=== PATIENT | female | born 1950 | race Caucasian/White ===

== ENCOUNTER 2017-07-06 15:09 | Inpatient (IN) ==
[2017-07-06] MEDS ORDERED: MORPHINE 2 MG/1 ML SYRINGE IM STA (16:01)
[2017-07-06] MEDS ORDERED: ACETAMINOPHEN 500 MG TABLET PO STA (16:01)
--- NOTE | 2017-07-06 16:02 | XRay Report ---
Exam: XR ankle 3V LT Exam date: 07/06/2017 3:32 PM Indication: Fall with Pain, Comparison: No relevant comparisons Findings: Mortise alignment is anatomic. Mildly displaced trimalleolar fracture. Small hemarthrosis. Soft tissue prominence at the fracture site Impression: Minimally displaced trimalleolar fracture PROCEDURE INTERPRETED AT [facility] DEPARTMENT OF RADIOLOGY Final Report Signed by: Jony Brown MD
--- NOTE | 2017-07-06 16:02 | XRay Report ---
Exam: XR foot 2V LT Exam date: 07/06/2017 3:33 PM Indication: Fall with Pain, Comparison: No relevant comparisons Findings: Trimalleolar ankle fracture is again noted. Joint spaces fairly well maintained. No fracture or dislocation. No joint effusion. No radiographic soft tissue abnormalities. Impression: No evidence of traumatic injury to left foot. Trimalleolar ankle fracture PROCEDURE INTERPRETED AT [facility] DEPARTMENT OF RADIOLOGY Final Report Signed by: Jony Brown MD
[2017-07-06] MEDS ORDERED: MORPHINE 2 MG/1 ML SYRINGE IV STA (16:07)
[2017-07-06] MEDS ORDERED: ACETAMINOPHEN 500 MG TABLET ONE (16:10)
[2017-07-06] MEDS ORDERED: MAGNESIUM HYDROXIDE SUSP 30 ML UDCUP PO PRN (16:37)
--- NOTE | 2017-07-06 16:42 | Emergency Department Note ---
Rita Thayer Brittany, am scribing for, and in the presence of, Almas Solis MD 16: 20. Will Thayer Robert, MD, personally performed the services described in this documentation, ascribed by Saba Salinas in my presence, and it is both accurate and complete . Arrival - Arrival Chief Complaint: Extremity Injury Stated Complaint: left ankle injury ED Nursing Triage Note: STATES SLIPPED IN A HOLE-TWISTING LEFT ANKLE-C/O LEFT FOOT-ANKLE PAIN-DEFORMITY -MILD EDEMA NOTED-GOOD PULSES PALPATED Mode of Arrival: Stretcher Limitations: No Limitations Source: Patient, Family Time Seen by Provider: 07/06/17 15:58 - History of Present Illness HPI Narrative: This may be limited secondary to pt's dementia. This is a 66 y/o white female, who presents to the ED by EMS with c/o LLE pain which started minutes [employer] S/P fall. Her states their dog has been digging holes in the yard. Her notes the hole has grown up some, but while pt was outside she stepped in the hole. She notes the right foot was the foot that was in the whole, but she is complaining of left foot pain. Per pt during exam of the LLE, "I can't feel my leg", but as soon as touches the LLE, "Oh, that hurts." Pt has dementia, so this may be limited. SHe notes she has a pain stimulator in her back for pain. She notes numbness which started yesterday but states the numbness has now gotten worse. Pt has no other complaints/pain in the ED at this time. Pt has a PMHx of Dementia, HTN, anxiety, depression, migraines, dyslipidemia, GERD, polyps, diverticulitis, lumbar spondylosis, Bhavik Fundoplication, and bulging disc. Pt has had an eye surgery, abdominal surgery, cholecystectomy, implanted devices, colonoscopy, gynecological surgery, tubal ligation, and spinal cord stimulator. Pt has a family medical Hx of colon cancer and HTN. Pt denies a social Hx. Onset (ago): minute(s) (Minutes [employer]OR) Consistency: constant Severity: moderate Allergies/Adverse Reactions: Allergies Allergy/AdvReac Type Severity Reaction Status Date / Time promethazine [From Phenergan] Allergy Intermediate Chills Verified 07/26/16 13: 28 Home Medications: Home Medications Medication Instructions Recorded Confirmed Type Donepezil [Aricept] 5 mg PO DAILY 01/12/15 04/03/17 History Fluoxetine [PROzac] 10 mg PO DAILY 01/12/15 04/03/17 History amLODIPine [Norvasc] 5 mg PO DAILY 01/12/15 04/03/17 History Aspirin Tab 325 mg PO DAILY 07/26/16 04/03/17 History Desvenlafaxine [Pristiq] 50 mg PO DAILY 03/26/17 04/03/17 History Gabapentin Cap/Tab [Neurontin 300 mg PO BID 03/26/17 04/03/17 History Cap/Tab] clonazePAM [Klonopin] 1 mg PO BEDTIME 03/26/17 04/03/17 History hydrOXYzine HCL TAB [Atarax Tab] 25 mg PO BEDTIME 03/26/17 04/03/17 History traZODone [Desyrel] 100 mg PO BEDTIME 03/26/17 04/03/17 History Cyanocobalamin Inj [Vitamin B12 1,000 mcg IM Q30D 04/03/17 04/03/17 History Inj] Pantoprazole Tab [Protonix Tab] 40 mg PO BID #60 tablet 04/03/17 Rx Review of System - Review of System 12 point system: reviewed and no additional remarkable complaints except as stated - Review of System Musculoskeletal: Present: joint swelling (Left ankle), leg pain (LLE pain ) Neurological: Present: weakness (Secondary to pain), numbness (Over her left foot and retirement option), abnormal gait (Unable to bear weight) Medical,Surgical,& Family Hx - Medical History Cardio: History of: Hypertension Psychological: History of: Anxiety Disorders, Depression Neurology: History of: Dementia, Migraine No history of: Seizures Endocrine: History of: Dyslipidemia Rheumatology: History of;: Rheumatological Problems (Arthritis) Gastrointestinal: History of: Diverticulitis/ Diverticulosis, GERD, Polyps, GI Problems (Hx: Bhavik Fundoplication) Musculoskeletal: History of: Back/Neck Problems (STIMULATOR IN NECK, lumbar spondylosis), Musculoskeletal Problems (Bulging disc) Other: No history of: Anesthesia Reactions - Surgical History Cardiac Surgeries: Patient Denies: Cardiac Catheterization HEENT Surgeries: Surgical HX of: Eye Surgery (cataracts heide) Patient denies: Tonsilectomy & Adenoidectomy Abdominal Surgeries: Surgical HX of: Abdominal Surgery, Cholecystectomy, Colonoscopy Reproductive Surgeries: Surgical HX of;: Gynecologic Surgery, Tubal Ligation Patient denies;: Genitourinary Surgery Orthopedic Surgeries: Surgical HX of;: Implanted Devices, Spinal Surgery ( Spinal cord stimulator) - Family History Family History: Reports;: Family Cancer (mother-colon), Family Hypertension ( Sister) Denies;: Family Anesthesia Reaction, Family Diabetes, Family Heart Disease, Family Psychiatric Problems, Family Stroke - Social History Smoking Status: Never smoker Exam Physical Examination: GENERAL: Well developed, well nourished. No acute distress. HEENT: PERRL, EOMI. No scleral icterus or conjunctival injection. mucous membranes moist. NECK: Supple. No lymph adenopathy. full ROM HEART: Regular rate and rhythm without murmurs, Rubs, or gallops. CHEST: No tenderness. LUNGS: clear to auscultation. No rales, rhonchi, wheezes ABDOMEN: Soft. Nontender. SKIN: No rash. No diaphoresis. normal color NEURO: Alert. Motor exam showed she was able to wiggle her toes. Unable to dorsiflex or plantarflex due to pain. Reports numbness to left toes, foot, ankle, lower leg. EXT: edema noted over Left ankle. Decreased range of motion of left ankle due to pain. Strong pedal pulse. Normal capillary refill, Vital Signs: Vital Signs Temperature 97.8 F 07/06/17 15:17 Pulse Rate 60 07/06/17 15:17 Respiratory Rate 20 07/06/17 15:17 Blood Pressure 130/68 07/06/17 15:17 O2 Sat by Pulse Oximetry 98 07/06/17 15:17 Course Course Narrative: Medical decision makin-year-old female stepped in hole and fell and twisted left ankle. X-rays show a trimalleolar fracture with mild displacement and with small amount of hemarthrosis. Patient has numbness in left foot. Discussed case with Dr. Robert at 4:31 PM who feels that she will likely need surgery and will admit her and see her later tonight. Disposition Clinical Impression: Trimalleolar fracture of left ankle Case discussed with: patient, patient's family Disposition: Still a Patient Condition: Stable Time of Disposition: 16:42
[2017-07-06 16:55] LABS: Potassium 4.5 MMOL/L (3.5-5.1)
[2017-07-06] MEDS ORDERED: SODIUM CHLORIDE 0.9% 1,000 ML IV SCH (17:00)
--- NOTE | 2017-07-06 17:11 | Orthopedic History & Physical ---
Assessment and Plan (1) Trimalleolar fracture of left ankle Status: Acute Current Visit: Yes History of Present Illness Chief complaint: Fracture left ankle History of present illness: Ms. Moy is a 66 year old female who stepped in a dog hole and fell sustaining trimalleolar fx left ankle. Brought to ER Home Medications Medication Instructions Recorded Confirmed Type Donepezil [Aricept] 5 mg PO DAILY 01/12/15 04/03/17 History Fluoxetine [PROzac] 10 mg PO DAILY 01/12/15 04/03/17 History amLODIPine [Norvasc] 5 mg PO DAILY 01/12/15 04/03/17 History Aspirin Tab 325 mg PO DAILY 07/26/16 04/03/17 History Desvenlafaxine [Pristiq] 50 mg PO DAILY 03/26/17 04/03/17 History Gabapentin Cap/Tab [Neurontin 300 mg PO BID 03/26/17 04/03/17 History Cap/Tab] clonazePAM [Klonopin] 1 mg PO BEDTIME 03/26/17 04/03/17 History hydrOXYzine HCL TAB [Atarax Tab] 25 mg PO BEDTIME 03/26/17 04/03/17 History traZODone [Desyrel] 100 mg PO BEDTIME 03/26/17 04/03/17 History Cyanocobalamin Inj [Vitamin B12 1,000 mcg IM Q30D 04/03/17 04/03/17 History Inj] Pantoprazole Tab [Protonix Tab] 40 mg PO BID #60 tablet 04/03/17 Rx Allergies Allergy/AdvReac Type Severity Reaction Status Date / Time promethazine [From Phenergan] Allergy Intermediate Chills Verified 07/26/16 13: 28 Medical,Surgical,& Family Hx - Medical History Cardio: History of: Hypertension Psychological: History of: Anxiety Disorders, Depression Neurology: History of: Dementia, Migraine No history of: Seizures Endocrine: History of: Dyslipidemia Rheumatology: History of;: Rheumatological Problems (Arthritis) Gastrointestinal: History of: Diverticulitis/ Diverticulosis, GERD, Polyps, GI Problems (Hx: Bhavik Fundoplication) Musculoskeletal: History of: Back/Neck Problems (STIMULATOR IN NECK, lumbar spondylosis), Musculoskeletal Problems (Bulging disc) Other: No history of: Anesthesia Reactions - Surgical History Cardiac Surgeries: Patient Denies: Cardiac Catheterization HEENT Surgeries: Surgical HX of: Eye Surgery (cataracts heide) Patient denies: Tonsilectomy & Adenoidectomy Abdominal Surgeries: Surgical HX of: Abdominal Surgery, Cholecystectomy, Colonoscopy Reproductive Surgeries: Surgical HX of;: Gynecologic Surgery, Tubal Ligation Patient denies;: Genitourinary Surgery Orthopedic Surgeries: Surgical HX of;: Implanted Devices, Spinal Surgery ( Spinal cord stimulator) - Family History Family History: Reports;: Family Cancer (mother-colon), Family Hypertension ( Sister) Denies;: Family Anesthesia Reaction, Family Diabetes, Family Heart Disease, Family Psychiatric Problems, Family Stroke - Social History Smoking Status: Never smoker Exam - Constitutional Vitals: Period Temp Pulse Resp BP Sys/Miranda Pulse Ox Last 24 Hr 97.8 F 60 20 130/68 98 Alert and oriented. Family says she is forgetful. HEENT: neg Heart: Reg rhythm Lungs: Clear ABdomen: no masses, negative BJE: left ankle in splint, neurovascular ok Results - Labs CBC & BMP: 07/06/17 16:13
[2017-07-06 17:38] LABS: Basophils % 0.2 % (0.0-0.8); Eosinophils % 0.2 % (0.00-10.9); Hematocrit 35.2 VOL% (35.7-47.0); Hemoglobin 12.2 GM/DL (12.0-16.0); Immature Granulocytes % 0.6 %; Immature Granulocytes Absolute 0.09 #; Lymphocytes # 3.6 10*3/uL (1.4-4.0); Lymphocytes % 23.2 % (21.3-54.2); Mean Corpuscular HGB Conc 34.7 GM/DL (32-36); Mean Corpuscular Hemoglobin 33 PG (27-34); Mean Corpuscular Volume 94.1 FL (87-102); Mean Platelet Volume 10.6 FL (9.6-12.0); Monocytes # 1.5 10*3/uL (0.11-0.8); Monocytes % 9.4 % (1.7-12.7); Neutrophils # 10.4 10*3/uL (1.4-7.4); Neutrophils % 66.4 % (38.7-73.9); Platelet Count 287 T/CUMM (130-400); Red Blood Count 3.74 MC/CUMM (3.8-5.5); Red Cell Distribution Width 12.7 % (9.3-17.3); White Blood Count 15.7 T/CUMM (4-12)
--- NOTE | 2017-07-06 17:55 | Hospitalist Consult Note ---
Assessment and Plan (1) Trimalleolar fracture of left ankle Status: Acute Assessment and plan: Defer to surgery. Surgery scheduled for 8 am. Current Visit: Yes (2) Hypertension Status: Acute Assessment and plan: Blood pressure stable. restart home med. Current Visit: Yes (3) Leukocytosis Status: Acute Assessment and plan: WBC 15.7. Blood cultures pending. CXR ordered. UA pending. Recheck cbc in am. Current Visit: Yes (4) Depression Status: Acute Assessment and plan: Once meds are confirmed; restart home meds. Current Visit: Yes History of Present Illness - Data of Consult Patient: new to practice Consult date: 07/06/17 Requesting Physician: Ottoniel Robert Primary care physician: Awilda Brown - Consult Narrative Reason for consult: medical management History of present illness: Ms. Moy is a 66 year old white female with a history of GERD, hypertension , anxiety and depression, dementia, migranes, lumbar spondylosis, Bhavik Fundoplication, and bulging disc presented to the ED today via EMS with complaints of left lower leg pain after fall. Patient and inletter are present at the bedside and serve as historians. Pt. was walking in the yard today and apparently stepped in hole that had been dug and then covered by the family dog. Per records it is noted that the right foot was the foot that was stuck in the hole but she the LLE is where she noted the pain. On examination in the ED, the foot xray showed a trimalleolar ankle fracture. Labs revealed a WBC of 15.7 Patient was admitted to the surgery service and the hospitalist program was consulted for medical management. Pt. was seen and examined in rapid track bed [address] Fonseca. Pt. is alert but oriented to self and place but not time. Pt's family states she has intermittent periods of confusion. We will manage patient's hypertension and other medical conditions. Home meds have been reviewed but not all have been confirmed. Code status has been discussed with the patient and she wishes to be a full code. Thank you for your consult. We will follow with you. We have ordered blood cultures, CXR, UA, and EKG for preop. Revised cardiac risk index for pre operative risk has been performed on patient. Thank you for your consult. CC: Ottoniel Robert MD - Home Medications and Allergies Home Medications: Home Medications Medication Instructions Recorded Confirmed Type Donepezil [Aricept] 5 mg PO DAILY 01/12/15 04/03/17 History Fluoxetine [PROzac] 10 mg PO DAILY 01/12/15 04/03/17 History amLODIPine [Norvasc] 5 mg PO DAILY 01/12/15 04/03/17 History Aspirin Tab 325 mg PO DAILY 07/26/16 04/03/17 History Desvenlafaxine [Pristiq] 50 mg PO DAILY 03/26/17 04/03/17 History Gabapentin Cap/Tab [Neurontin 300 mg PO BID 03/26/17 04/03/17 History Cap/Tab] clonazePAM [Klonopin] 1 mg PO BEDTIME 03/26/17 04/03/17 History hydrOXYzine HCL TAB [Atarax Tab] 25 mg PO BEDTIME 03/26/17 04/03/17 History traZODone [Desyrel] 100 mg PO BEDTIME 03/26/17 04/03/17 History Cyanocobalamin Inj [Vitamin B12 1,000 mcg IM Q30D 04/03/17 04/03/17 History Inj] Pantoprazole Tab [Protonix Tab] 40 mg PO BID #60 tablet 04/03/17 Rx Allergies/Adverse Reactions: Allergies Allergy/AdvReac Type Severity Reaction Status Date / Time promethazine [From Phenergan] Allergy Intermediate Chills Verified 07/26/16 13: 28 Medical,Surgical,& Family Hx - Medical History Cardio: History of: Hypertension Psychological: History of: Anxiety Disorders, Depression Neurology: History of: Dementia, Migraine No history of: Seizures Endocrine: History of: Dyslipidemia Rheumatology: History of;: Rheumatological Problems (Arthritis) Gastrointestinal: History of: Diverticulitis/ Diverticulosis, GERD, Polyps, GI Problems (Hx: Bhavik Fundoplication) Musculoskeletal: History of: Back/Neck Problems (STIMULATOR IN NECK, lumbar spondylosis), Musculoskeletal Problems (Bulging disc) Other: No history of: Anesthesia Reactions - Surgical History Cardiac Surgeries: Patient Denies: Cardiac Catheterization HEENT Surgeries: Surgical HX of: Eye Surgery (cataracts heide) Patient denies: Tonsilectomy & Adenoidectomy Abdominal Surgeries: Surgical HX of: Abdominal Surgery, Cholecystectomy, Colonoscopy Reproductive Surgeries: Surgical HX of;: Gynecologic Surgery, Tubal Ligation Patient denies;: Genitourinary Surgery Orthopedic Surgeries: Surgical HX of;: Implanted Devices, Spinal Surgery ( Spinal cord stimulator) - Family History Family History: Reports;: Family Cancer (mother-colon), Family Hypertension ( Sister) Denies;: Family Anesthesia Reaction, Family Diabetes, Family Heart Disease, Family Psychiatric Problems, Family Stroke - Social History Smoking Status: Never smoker Frequency of Alcohol Use: None Type of Drug Use: None Marital Status: Lives With:: Spouse Functional capacity: independent ambulation 12 point system: reviewed and no additional remarkable complaints except as stated Exam - Constitutional Vitals: Period Temp Pulse Resp BP Sys/Miranda Pulse Ox Last 24 Hr 97.8 F 60 20 130/68 98 General appearance: normal weight, no acute distress - Head Head exam: Present: normal inspection, normocephalic - Eye Eye exam: Present: EOMI Pupils: Present: DONNELL - Respiratory Respiratory exam: Present: clear to auscultation bilaterally. Absent: wheezes - Cardiovascular Cardiovascular exam: Present: regular rate and rhythm - GI/Abdominal GI/Abdominal exam: Present: normal bowel sounds, soft. Absent: tenderness - Extremities Exam Extremities exam: Present: edema (RLE; LLE is wrapped in adalberto bandage). Absent: full ROM - Expanded Left Lower Lower leg exam: Present: tenderness. Absent: full ROM Foot/Toe exam: Present: swelling. Absent: full ROM Neuro vascular tendon exam: Absent: abnormal cap refill Gait: Present: not tested/not observed - Neurological Exam Neurological exam: Present: alert, oriented X3 - Psychiatric Psychiatric exam: Present: normal affect, normal mood - Skin Skin exam: Present: normal color, warm, dry Results - Labs CBC & BMP: 07/06/17 16:13 07/06/17 16:13 Lab Results: I have reviewed the past 24 hour labs
[2017-07-06] MEDS ORDERED: MORPHINE 2 MG/1 ML SYRINGE ONE (18:06)
--- NOTE | 2017-07-06 18:08 | XRay Report ---
XR chest 1V portable Indication: Respiratory preoperative evaluation Comparison: 26 July 2016 Findings: The heart and mediastinum are normal in size and configuration. The pulmonary vascularity is normal in caliber. No lung infiltrates, effusions, pneumothorax or other abnormality is demonstrated. Impression: No acute cardiopulmonary disease. PROCEDURE INTERPRETED AT [facility] DEPARTMENT OF RADIOLOGY Final Report Signed by: Dr. Terry Grigsby
[2017-07-06] MEDS ORDERED: MORPHINE 2 MG/1 ML SYRINGE IV ONE (18:12)
[2017-07-06] MEDS: SODIUM CHLORIDE 0.9% 1,000 ML IV SCH (19:42)
[2017-07-06] MEDS ORDERED: PNEUMOCOCCAL VACCINE (13 VALENT) 0.5 ML SYRINGE IM ONE (22:36)
[2017-07-07 02:11] LABS: Basophils # 0.1 10*3/uL (0.0-0.2); Basophils % 0.6 % (0.0-0.8); Eosinophils # 0.1 10*3/uL (0.0-0.87); Eosinophils % 0.7 % (0.00-10.9); Hematocrit 30.2 VOL% (35.7-47.0); Hemoglobin 9.9 GM/DL (12.0-16.0); Immature Granulocytes % 0.5 %; Immature Granulocytes Absolute 0.04 #; Lymphocytes # 2.5 10*3/uL (1.4-4.0); Lymphocytes % 29.1 % (21.3-54.2); Mean Corpuscular HGB Conc 32.8 GM/DL (32-36); Mean Corpuscular Hemoglobin 32 PG (27-34); Mean Corpuscular Volume 97.7 FL (87-102); Mean Platelet Volume 10.1 FL (9.6-12.0); Monocytes # 0.7 10*3/uL (0.11-0.8); Monocytes % 8.5 % (1.7-12.7); Neutrophils # 5.2 10*3/uL (1.4-7.4); Neutrophils % 60.6 % (38.7-73.9); Platelet Count 205 T/CUMM (130-400); Red Blood Count 3.09 MC/CUMM (3.8-5.5); Red Cell Distribution Width 13.1 % (9.3-17.3); White Blood Count 8.5 T/CUMM (4-12)
[2017-07-07 02:39] LABS: Magnesium 2.3 MG/DL (1.8-2.4); Osmolality,Calculated 290.7 MOS/KG (273-304); Potassium 3.9 MMOL/L (3.5-5.1)
--- NOTE | 2017-07-07 08:24 | Order Completion Report ---
See report scanned to EMR
[2017-07-07] MEDS ORDERED: MIDAZOLAM 2 MG/2 ML VIAL ONE (09:33)
[2017-07-07] MEDS ORDERED: ROPIVACAINE 0.5% 30 ML VIAL ONE (09:37)
[2017-07-07] MEDS ORDERED: ONDANSETRON 4 MG/2 ML VIAL ONE (10:17)
[2017-07-07] MEDS ORDERED: PHENYLEPHRINE 1 MG/10 ML SYRINGE IV ONE (10:17)
[2017-07-07] MEDS ORDERED: ceFAZolin 1,000 MG VIAL ONE (10:41)
--- NOTE | 2017-07-07 12:13 | XRay Report ---
XR ankle 3V LT Indication: Fracture fixation Comparison: 06 July 2017 Findings: Internal fixation of medial malleolus and lateral malleolus fractures are performed. Alignment appear within normal limits on the images submitted. Next Fluoroscopy time 27.2 seconds Impression: Fracture fixation left ankle as described above. PROCEDURE INTERPRETED AT [facility] DEPARTMENT OF RADIOLOGY Final Report Signed by: Dr. Terry Grigsby
--- NOTE | 2017-07-07 12:34 | Operative Note ---
Procedure: Date of procedure 07/07/17 Surgeon: Jakob Anesthesia: General plus block Preoperative diagnosis: Closed displaced trimalleolar fracture left ankle Postoperative diagnosis: Same Operations performed: Open reduction and internal fixation of trimalleolar fracture left ankle Patient taken to the operating room where after a block extremity and then under satisfactory general anesthesia the left lower limb was prepped and draped. Usual documentation procedures were carried out. 2 g Ancef given intravenously. Pneumatic tourniquet inflated to 300 mmHg. A C arm image intensifier was used for radiographic control. The fracture site was manipulated and examined under anesthesia radiographically and although she did appear to have a trimalleolar component the posterior malleolus was not displaced and accordingly it was concluded that the operative repair would be directed to the bimalleolar component. Straight linear lateral skin incision about 8 cm in length was made laterally and 5 cm in length medially. Dissection was carried down in both sites and the fracture sites identified entered cleaned and reduced. Temporary fixation was done with K wires and clamps and then a medium sized fragment plate and screws using an 8 hole one third tubular plate manufactured by [employer] with appropriate number of screws. There is an additional lag screw to hold the fracture site in the anterior- posterior plane. Following this attention turned medially and again K wires used temporarily and then a small fragment screw placed with 1 K wire remaining to prevent rotation. Check x-rays in all planes were satisfactory. The lowest lateral screw because of the anatomy of the fracture site was closed the skin and as much as possible attempts made to keep it away from the scan and a locking screw was used in the slowest lateral position because of his lower profile. Wound was closed in layers with 3-0 Vicryl and 3-0 Ethilon. Dressing and splint applied. Patient returned to the PACU in good condition. Note: It was determined that surgery that she was extremely poor osteoporotic. Recommendations are that she be nonweightbearing at least until 6 weeks after surgery on that extremity. Ottoniel Robert MD Surgeon / Physician: Ottoniel Robert Results - Labs CBC & BMP: 07/07/17 02:00 07/07/17 02:00 Discharge Plan - Discharge Medications No Action Donepezil [Aricept] 5 mg PO DAILY Fluoxetine [PROzac] 10 mg PO DAILY amLODIPine [Norvasc] 5 mg PO DAILY Aspirin Tab 325 mg PO DAILY traZODone [Desyrel] 100 mg PO BEDTIME Gabapentin Cap/Tab [Neurontin Cap/Tab] 300 mg PO BID hydrOXYzine HCL TAB [Atarax Tab] 25 mg PO BEDTIME clonazePAM [Klonopin] 1 mg PO BEDTIME Cyanocobalamin Inj [Vitamin B12 Inj] 1,000 mcg IM Q30D Pantoprazole Tab [Protonix Tab] 40 mg PO BID #60 tablet Desvenlafaxine [Pristiq] 50 mg PO DAILY - Follow Up or Referral - Forms/Instructions
--- NOTE | 2017-07-07 13:47 | Anesthesia Post-Op ---
Anesthesia Post OP - Post Ansesthetic Evaluation Patient seen in post op: Yes Resp: within normal limits CV: within normal limits Mental: within normal limits Temp: within normal limits [id number]: within normal limits Nausea and Vomiting: within normal limits Pain: within normal limits
--- NOTE | 2017-07-07 13:47 | Hospitalist Progress Note ---
Assessment and Plan (1) Trimalleolar fracture of left ankle Status: Acute Assessment and plan: Status post ORIF of the left ankle Current Visit: Yes (2) Hypertension Status: Acute Assessment and plan: blood pressure sometimes low after surgery hold meds for now Current Visit: Yes (3) Leukocytosis Status: Acute Assessment and plan: Thought to be due to a stress response white count is down to 8.5 with still check a UA Current Visit: Yes (4) Depression Status: Acute Assessment and plan: prozac or pristiq Current Visit: Yes (5) Anemia Status: Acute Assessment and plan: cont protonix, monitor Current Visit: Yes (6) Dementia Status: Acute Assessment and plan: cont aricept Current Visit: Yes Hospitalist: Subjective Interval history: Patient fell yesterday and sustained a left ankle fracture. She seems like a very poor historian. Patient does have a history of hypertension and rheumatoid arthritis. Medicines were reviewed but not confirmed. They were reconciled. Exam - Constitutional Vitals: Period Temp Pulse Resp BP Sys/Miranda Pulse Ox Last 24 Hr 97.0 F-99 F 54-88 16-20 90-136/51-79 93-98 Exam: Heart Rate-[RRR] Lungs-[CTAB] GI-[+bs soft, NT] Neuro upper extremity 5 out of 5, [alert and oriented times 2] psych [depressed mood and flat affect] General [no acute distress] Results - Labs CBC & BMP: 07/07/17 02:00 07/07/17 02:00 Lab Results: I have reviewed the past 24 hour labs - Diagnostic Findings Procedure: Chest x-ray: report reviewed by me (nothing acute )
[2017-07-07] MEDS ORDERED: ePHEDrine 50 MG/ML AMP ONE (13:53)
[2017-07-07] MEDS ORDERED: LACTATED RINGERS 1,000 ML IV ONE (13:53)
[2017-07-07] MEDS ORDERED: SEVOFLURANE 1 UNIT/15 MINUTE INH ONE (13:53)
[2017-07-07] MEDS: SODIUM CHLORIDE 0.9% 1,000 ML IV SCH (15:50)
[2017-07-07 17:59] LABS: Apearance,Urine CLEAR (Clear); Bilirubin,Urine Negative (Negative); Blood, Urine Negative (Negative); Glucose,Urine (UA) 50 mg/dL (Negative); Ketones,Urine Negative (Negative); Nitrite,Urine Negative (Negative); Protein,Urine Negative; RBC,Urine <1 /HPF (0-4); Squamous Epithelial Cell,Urine Occasional /HPF (0-10); Urine Color Straw (Yellow); Urine Specific Gravity 1.004 (1.001-1.035); Urine Urobilinogen < 2.0 EU/DL (0.2-1.0); WBC,Urine <1 /HPF (0-6)
[2017-07-07] MEDS: clonazePAM 0.5 MG TABLET PO SCH (20:46)
[2017-07-07] MEDS: PANTOPRAZOLE 40 MG TABLET PO SCH (20:47)
[2017-07-08 03:33] LABS: Basophils # 0.1 10*3/uL (0.0-0.2); Basophils % 0.6 % (0.0-0.8); Eosinophils # 0.2 10*3/uL (0.0-0.87); Eosinophils % 1.9 % (0.00-10.9); Hematocrit 30.7 VOL% (35.7-47.0); Hemoglobin 10.1 GM/DL (12.0-16.0); Immature Granulocytes % 0.2 %; Immature Granulocytes Absolute 0.02 #; Lymphocytes # 2.1 10*3/uL (1.4-4.0); Lymphocytes % 25.8 % (21.3-54.2); Mean Corpuscular HGB Conc 32.9 GM/DL (32-36); Mean Corpuscular Hemoglobin 32 PG (27-34); Mean Corpuscular Volume 97.2 FL (87-102); Mean Platelet Volume 10.1 FL (9.6-12.0); Monocytes # 1.1 10*3/uL (0.11-0.8); Monocytes % 13.8 % (1.7-12.7); Neutrophils # 4.8 10*3/uL (1.4-7.4); Neutrophils % 57.7 % (38.7-73.9); Platelet Count 192 T/CUMM (130-400); Red Blood Count 3.16 MC/CUMM (3.8-5.5); Red Cell Distribution Width 12.9 % (9.3-17.3); White Blood Count 8.3 T/CUMM (4-12)
[2017-07-08 04:00] LABS: Calcium 7.7 MG/DL (8.5-10.1); Magnesium 2.1 MG/DL (1.8-2.4); Osmolality,Calculated 280.3 MOS/KG (273-304); Potassium 3.9 MMOL/L (3.5-5.1)
[2017-07-08] MEDS: SODIUM CHLORIDE 0.9% 1,000 ML IV SCH ×2 (06:15→09:20)
[2017-07-08] MEDS ORDERED: DESVENLAFAXINE 50 MG TABLET PO SCH (09:00)
[2017-07-08] MEDS: DONEPEZIL 5 MG TABLET PO SCH (09:19)
[2017-07-08] MEDS: PANTOPRAZOLE 40 MG TABLET PO SCH ×2 (09:19→21:08)
--- NOTE | 2017-07-08 09:49 | Orthopedic Progress Note ---
Assessment and Plan (1) Trimalleolar fracture of left ankle Status: Acute Current Visit: Yes Orthopedics - Subjective Interval history: She is alert and oriented. He has no significant pain. Neurovascular is okay left leg. Suggested plan because of her extreme osteoporosis and fragility of the fracture repair that should be nonweightbearing on the operative side until 6 weeks postoperative. Exam - Constitutional Vitals: Period Temp Pulse Resp BP Sys/Miranda Pulse Ox Last 24 Hr 98.0 F-99.3 F 68-88 16-20 96-136/52-79 90-98 Results - Labs CBC & BMP: 07/08/17 02:04 07/08/17 02:04
--- NOTE | 2017-07-08 11:40 | Hospitalist Progress Note ---
Assessment and Plan (1) Trimalleolar fracture of left ankle Status: Acute Assessment and plan: Status post ORIF of the left ankle, Arixtra for DVT prophylaxis Current Visit: Yes (2) Hypertension Status: Acute Assessment and plan: Continue to hold meds as her blood pressure is still low today. Continue normal saline at 75 Current Visit: Yes (3) Leukocytosis Status: Acute Assessment and plan: Due to stress response. UA is completely negative Current Visit: Yes (4) Depression Status: Acute Assessment and plan: restart prozac Current Visit: Yes (5) Anemia Status: Acute Assessment and plan: cont protonix, stable Current Visit: Yes (6) Dementia Status: Acute Assessment and plan: cont aricept Current Visit: Yes Hospitalist: Subjective Interval history: Patient looks good today. She is already wanting to try to get up. She seems less lethargic today. Exam - Constitutional Vitals: Period Temp Pulse Resp BP Sys/Miranda Pulse Ox Last 24 Hr 98.0 F-99.8 F 68-88 16-20 95-136/52-79 90-98 Exam: Heart Rate-[RRR] Lungs-[CTAB] GI-[+bs soft, NT] Neuro upper extremity 5 out of 5 but weak, [alert and oriented times 2] psych [depressed mood and flat affect] General [no acute distress] Results - Labs CBC & BMP: 07/08/17 02:04 07/08/17 02:04 Lab Results: I have reviewed the past 24 hour labs
[2017-07-08] MEDS: FONDAPARINUX 2.5 MG/0.5 ML SYRINGE SUBCUT SCH (12:33)
[2017-07-08] MEDS: clonazePAM 0.5 MG TABLET PO SCH (21:08)
[2017-07-09 06:27] LABS: Basophils % 0.4 % (0.0-0.8); Eosinophils # 0.2 10*3/uL (0.0-0.87); Eosinophils % 2.2 % (0.00-10.9); Hematocrit 30.3 VOL% (35.7-47.0); Hemoglobin 9.8 GM/DL (12.0-16.0); Immature Granulocytes % 0.3 %; Immature Granulocytes Absolute 0.02 #; Lymphocytes # 2.2 10*3/uL (1.4-4.0); Lymphocytes % 30.6 % (21.3-54.2); Mean Corpuscular HGB Conc 32.3 GM/DL (32-36); Mean Corpuscular Hemoglobin 31 PG (27-34); Mean Corpuscular Volume 96.5 FL (87-102); Mean Platelet Volume 10.1 FL (9.6-12.0); Monocytes # 1.1 10*3/uL (0.11-0.8); Monocytes % 14.8 % (1.7-12.7); Neutrophils # 3.8 10*3/uL (1.4-7.4); Neutrophils % 51.7 % (38.7-73.9); Platelet Count 170 T/CUMM (130-400); Red Blood Count 3.14 MC/CUMM (3.8-5.5); Red Cell Distribution Width 12.6 % (9.3-17.3); White Blood Count 7.3 T/CUMM (4-12)
[2017-07-09 06:56] LABS: Calcium 7.7 MG/DL (8.5-10.1); Magnesium 2.1 MG/DL (1.8-2.4); Osmolality,Calculated 280.1 MOS/KG (273-304); Potassium 3.7 MMOL/L (3.5-5.1)
[2017-07-09] MEDS: PANTOPRAZOLE 40 MG TABLET PO SCH ×2 (08:50→20:17)
[2017-07-09] MEDS: DONEPEZIL 5 MG TABLET PO SCH (08:50)
[2017-07-09] MEDS: FLUoxetine 10 MG CAPSULE PO SCH (08:50)
--- NOTE | 2017-07-09 10:37 | Orthopedic Progress Note ---
Orthopedics - Subjective Interval history: Ms Moy was seen and examined. The chart was reviewed. She states that she would like to be discharged home today. However she was max assist and only able to transfer to the chair. Left lower extremity: Splint is clean, dry and intact. She can flex extend her toes. Capillary refills less than 2 seconds. Sensations intact to the first dorsal webspace, plantar and dorsal aspects of her foot. Radiographs were reviewed of her ankle. Impression: Status post ORIF left ankle trimalleolar fracture Plan: I discussed with the patient and her daughter that I would like to see her do much better with physical therapy prior to discharge home. We will tentatively plan for tomorrow. Exam - Constitutional Vitals: Period Temp Pulse Resp BP Sys/Miranda Pulse Ox Last 24 Hr 97.7 F-100.9 F 71-84 17-20 98-124/39-68 93-100 Results - Labs CBC & BMP: 07/09/17 05:16 07/09/17 05:16
[2017-07-09] MEDS: FONDAPARINUX 2.5 MG/0.5 ML SYRINGE SUBCUT SCH (11:15)
--- NOTE | 2017-07-09 12:26 | Hospitalist Progress Note ---
Assessment and Plan (1) Trimalleolar fracture of left ankle Status: Acute Assessment and plan: The patient has had open reduction internal fixation of left ankle fracture. Dr. Perales anticipates discharge home with home health physical therapy tomorrow. Current Visit: Yes (2) Hypertension Status: Acute Current Visit: Yes (3) Anemia Status: Acute Current Visit: Yes Hospitalist: Subjective Interval history: The patient is accompanied by her daughter. She lives at home with the care of her daughter. The patient is participating with physical therapy and anticipates discharge directly home and does not wish to go to swing bed. The patient does not complain of shortness of breath or angina today. Exam - Constitutional Vitals: Period Temp Pulse Resp BP Sys/Miranda Pulse Ox Last 24 Hr 97.7 F-100.9 F 71-86 17-20 108-157/53-70 95-100 Exam: Chest is clear, heart has regular rate and rhythm, abdomen soft. Results - Labs CBC & BMP: 07/09/17 05:16 07/09/17 05:16 Lab Results: I have reviewed the past 24 hour labs Specialty Discharge - Follow Up or Referrals Follow up with: Axel Perales Jr., MD [Physician] -
[2017-07-09] MEDS: clonazePAM 0.5 MG TABLET PO SCH (20:17)
[2017-07-10 07:12] LABS: Basophils % 0.4 % (0.0-0.8); Eosinophils # 0.2 10*3/uL (0.0-0.87); Hematocrit 31.9 VOL% (35.7-47.0); Hemoglobin 10.7 GM/DL (12.0-16.0); Immature Granulocytes % 0.4 %; Immature Granulocytes Absolute 0.03 #; Lymphocytes # 1.6 10*3/uL (1.4-4.0); Mean Corpuscular HGB Conc 33.5 GM/DL (32-36); Mean Corpuscular Hemoglobin 31 PG (27-34); Mean Corpuscular Volume 93.5 FL (87-102); Mean Platelet Volume 9.9 FL (9.6-12.0); Monocytes # 0.9 10*3/uL (0.11-0.8); Monocytes % 11.5 % (1.7-12.7); Neutrophils # 4.9 10*3/uL (1.4-7.4); Neutrophils % 64.7 % (38.7-73.9); Platelet Count 209 T/CUMM (130-400); Red Blood Count 3.41 MC/CUMM (3.8-5.5); Red Cell Distribution Width 12.3 % (9.3-17.3); White Blood Count 7.6 T/CUMM (4-12)
[2017-07-10 07:41] LABS: Calcium 8.5 MG/DL (8.5-10.1); Magnesium 2.4 MG/DL (1.8-2.4); Osmolality,Calculated 279.3 MOS/KG (273-304); Potassium 3.5 MMOL/L (3.5-5.1)
[2017-07-10] MEDS: FLUoxetine 10 MG CAPSULE PO SCH (08:27)
[2017-07-10] MEDS: PANTOPRAZOLE 40 MG TABLET PO SCH ×2 (08:27→20:03)
[2017-07-10] MEDS: DONEPEZIL 5 MG TABLET PO SCH (08:27)
--- NOTE | 2017-07-10 08:34 | Discharge Summary ---
Hospital Course - Hospital Course Hospital Course: Ms Moy sustained a left trimalleolar ankle fracture. She underwent open reduction fixation by Dr. Robert on July 07, 2017. She did very poorly with physical therapy and is essentially maximum assist. We felt that she would be safer at a swing bed. She was discharged to swing bed in stable condition. She can flex extend her toes. Sensations intact. Splint is clean, dry and intact. Specialty Discharge - Follow Up or Referrals Follow up with: Axel Perales Jr., MD [Physician] - Discharge Plan - Discharge Data Disposition: Disch/Xfer to Snf Condition at Discharge: Stable Discharge Diet: advance to your usual diet Activity: ambulate only with your walker Hygiene: keep area(s) dry Weight Bearing at Discharge: non-weight bearing Driving: not until seen by doctor - Discharge Medications New HYDROcodone/ACETAMIN 7.5-325 [Immaculata 7.5-325] 2 tablet PO Q4H PRN tablet PRN Reason: Pain Severe (8-10) Magnesium Hydroxide Susp [Milk of Magnesia] 30 ml PO Q6H PRN PRN Reason: Constipation Fondaparinux [Arixtra] 2.5 mg SUBCUT Q24H 14 Days HYDROcodone/ACETAMIN 7.5-325 [Immaculata 7.5-325] 1 tablet PO Q4H PRN tablet PRN Reason: Pain Moderate (4-7) Continue Donepezil [Aricept] 5 mg PO DAILY Fluoxetine [PROzac] 10 mg PO DAILY amLODIPine [Norvasc] 5 mg PO DAILY traZODone [Desyrel] 100 mg PO BEDTIME Gabapentin Cap/Tab [Neurontin Cap/Tab] 300 mg PO BID hydrOXYzine HCL TAB [Atarax Tab] 25 mg PO BEDTIME clonazePAM [Klonopin] 1 mg PO BEDTIME Cyanocobalamin Inj [Vitamin B12 Inj] 1,000 mcg IM Q30D Pantoprazole Tab [Protonix Tab] 40 mg PO BID #60 tablet Desvenlafaxine [Pristiq] 50 mg PO DAILY Discontinued Aspirin Tab 325 mg PO DAILY - Follow Up or Referral Follow Up: Axel Perales Jr., MD [Physician] - - Forms/Instructions Additional Discharge Instructions: Follow-up appointment in 2 weeks. Strict nonweightbearing left lower extremity. Keep splint clean, dry and intact. Encourage elevation 6 inches over heart level. Ice as needed. Prescription for Immaculata 7.5 with 20 tablets was written. Arixtra for 2 weeks. Resume aspirin 325 mg when Arixtra stopped. Exam - Constitutional Vitals: Period Temp Pulse Resp BP Sys/Miranda Pulse Ox Last 24 Hr 97.0 F-98.8 F 72-93 16-20 101-157/54-77 92-97 Discharge Results Procedures and tests throughout hospitalization: Pending Orders 07/06/17 17:45 Blood Culture Stat 07/11/17 04:00 BMP w/ Mg [Basic Metabolic Panel w/Mg] IN AM Comp Blood Count Auto Diff IN AM Labs on day of discharge: Labs from last 24 hours 07/10/17 07/10/17 06:44 06:44 WBC 7.6 RBC 3.41 L Hgb 10.7 L Hct 31.9 L MCV 93.5 MCH 31 MCHC 33.5 RDW 12.3 Plt Count 209 D MPV 9.9 Neut % (Auto) 64.7 Lymph % (Auto) 21.0 L [place] % (Auto) 11.5 Eos % (Auto) 2.0 Baso % (Auto) 0.4 Neut # (Auto) 4.9 Lymph # (Auto) 1.6 [place] # (Auto) 0.9 H Eos # (Auto) 0.2 Baso # (Auto) 0.0 Immature Gran % 0.4 Nucleated RBC % 0.0 Immature Gran # 0.03 Nucleated RBCs # 0.00 Immature Plt Fraction 0.0 Sodium 141 Potassium 3.5 Chloride 106 Carbon Dioxide 25 Anion Gap 13.5 BUN 9 Creatinine 0.50 L GFR Calculation 99 BUN/Creatinine Ratio 18.00 Glucose 95 Calculated Osmolality 279.3 Calcium 8.5 Magnesium 2.4 Preliminary micro results at discharge 07/07/17 02:00 Blood Culture - Preliminary Blood No growth at 3 days 07/07/17 02:00 Blood Culture - Preliminary Blood No growth at 3 days DS: Provider Date of admission: 07/06/17 16:35 Primary care physician: Awilda Brown NP Attending physician on admission: Ottoniel Robert MD Consults: 07/06/17 16:32 Consult to Physician [CONS] Routine Comment: Consulting Provider: Ottoniel Robert Consulting Provider Notified: Yes When should Consulting Provider be notified: Now Consult to Specialist Group: Orthopedic When should Consulting Provider be notified: Now Date Notified: 07/07/17 Consult Notification Comment: Dr. Robert saw on rounds. 07/06/17 17:45 Consult to Physician [CONS] Routine Comment: Consulting Provider: Cale Baird Consulting Provider Notified: No When should Consulting Provider be notified: Now Date Notified: 07/07/17 Consult Notification Comment: Dr. Ta saw on rounds. 07/07/17 13:45 Consult to Physical Therapy [CONS] Routine Reason for Physical Therapy: Evaluate and Treat 07/09/17 10:06 Consult to Case Mgmt/Social Srvs [CONS] Routine Reason for Case Mgmt/Social Srvs: Home Health Rehab Equipment Consult Comment: Set up HH Rehab; Deliver B[facility] Room 320 today D/C'd; Pt 5ft 4in 146lbs 07/09/17 10:07 Consult to Physical Therapy [CONS] Routine Reason for Physical Therapy: Other Consult Comment: Deliver Standard Walker to room 320 today before D/C home; home rehab. Discharging clinician: Axel Perales Jr., Expected date of discharge: 07/10/17
--- NOTE | 2017-07-10 10:29 | Hospitalist Progress Note ---
Assessment and Plan (1) Trimalleolar fracture of left ankle Status: Acute Assessment and plan: The patient has had open reduction internal fixation of left ankle fracture. Dr. Perales has ordered transfer to swing bed to continue therapy before discharge home for independent living. Current Visit: Yes (2) Hypertension Status: Acute Current Visit: Yes (3) Anemia Status: Acute Current Visit: Yes Hospitalist: Subjective Interval history: Ms. Moy is max to moderate assist for transfer to the chair. She has no new medical complications and is ready for transfer to swing bed. Exam - Constitutional Vitals: Period Temp Pulse Resp BP Sys/Miranda Pulse Ox Last 24 Hr 97.0 F-98.8 F 72-93 16-20 101-157/54-77 92-97 Exam: Chest is clear, heart has regular rate and rhythm, abdomen soft. Results - Labs CBC & BMP: 07/10/17 06:44 07/10/17 06:44 Lab Results: I have reviewed the past 24 hour labs Specialty Discharge - Follow Up or Referrals Follow up with: Axel Perales Jr., MD [Physician] - 07/24/17 12:40 pm
[2017-07-10] MEDS: FONDAPARINUX 2.5 MG/0.5 ML SYRINGE SUBCUT SCH (13:37)
[2017-07-10] MEDS: clonazePAM 0.5 MG TABLET PO SCH (20:03)
[2017-07-10] MEDS: SODIUM CHLORIDE 0.9% 1,000 ML IV SCH (22:05)
[2017-07-11 07:21] LABS: Basophils % 0.5 % (0.0-0.8); Eosinophils # 0.2 10*3/uL (0.0-0.87); Eosinophils % 2.9 % (0.00-10.9); Hematocrit 32.3 VOL% (35.7-47.0); Hemoglobin 10.7 GM/DL (12.0-16.0); Immature Granulocytes % 0.3 %; Immature Granulocytes Absolute 0.02 #; Lymphocytes # 1.8 10*3/uL (1.4-4.0); Lymphocytes % 30.8 % (21.3-54.2); Mean Corpuscular HGB Conc 33.1 GM/DL (32-36); Mean Corpuscular Hemoglobin 32 PG (27-34); Mean Corpuscular Volume 95.3 FL (87-102); Mean Platelet Volume 9.9 FL (9.6-12.0); Monocytes # 0.8 10*3/uL (0.11-0.8); Monocytes % 12.9 % (1.7-12.7); Neutrophils # 3.1 10*3/uL (1.4-7.4); Neutrophils % 52.6 % (38.7-73.9); Platelet Count 222 T/CUMM (130-400); Red Blood Count 3.39 MC/CUMM (3.8-5.5); Red Cell Distribution Width 12.3 % (9.3-17.3); White Blood Count 5.8 T/CUMM (4-12)
[2017-07-11 07:47] LABS: Calcium 8.5 MG/DL (8.5-10.1); Magnesium 2.5 MG/DL (1.8-2.4); Osmolality,Calculated 278.3 MOS/KG (273-304); Potassium 3.9 MMOL/L (3.5-5.1)
--- NOTE | 2017-07-11 09:05 | Orthopedic Progress Note ---
Orthopedics - Subjective Interval history: Ms. Moy was able to get to the chair yesterday. She still requiring significant assistance with even transfers. Her splint is clean, dry and intact. Right lower extremity is neurovascularly unchanged. Plan: Discharged to swing bed when approved. Exam - Constitutional Vitals: Period Temp Pulse Resp BP Sys/Miranda Pulse Ox Last 24 Hr 97.5 F-99.6 F 65-86 16-20 112-133/59-70 93-97 Results - Labs CBC & BMP: 07/11/17 06:13 07/11/17 06:13 Specialty Discharge - Follow Up or Referrals Follow up with: Axel Perales Jr., MD [Physician] - 07/24/17 12:40 pm
[2017-07-11] MEDS: DONEPEZIL 5 MG TABLET PO SCH (09:23)
[2017-07-11] MEDS: PANTOPRAZOLE 40 MG TABLET PO SCH (09:23)
[2017-07-11] MEDS: FLUoxetine 10 MG CAPSULE PO SCH (09:23)
[2017-07-11 11:13] VITALS: BP 114/69
--- NOTE | 2017-07-11 11:26 | Hospitalist Progress Note ---
Assessment and Plan (1) Trimalleolar fracture of left ankle Status: Acute Assessment and plan: The patient has had open reduction internal fixation of left ankle fracture. Dr. Perales has ordered transfer to swing bed to continue therapy before discharge home for independent living. Current Visit: Yes (2) Hypertension Status: Acute Current Visit: Yes (3) Anemia Status: Acute Current Visit: Yes Hospitalist: Subjective Interval history: Ms. Moy is resting in chair. She is able to make transfers with the assistance of physical therapist. Exam - Constitutional Vitals: Period Temp Pulse Resp BP Sys/Miranda Pulse Ox Last 24 Hr 97.5 F-99.6 F 65-86 16-20 112-133/59-70 93-97 Exam: Chest is clear, heart has regular rate and rhythm, abdomen soft. Results - Labs CBC & BMP: 07/11/17 06:13 07/11/17 06:13 Lab Results: I have reviewed the past 24 hour labs Specialty Discharge - Follow Up or Referrals Follow up with: Axel Perales Jr., MD [Physician] - 07/24/17 12:40 pm
[2017-07-11] MEDS: FONDAPARINUX 2.5 MG/0.5 ML SYRINGE SUBCUT SCH (12:15)
== END 2017-07-11 14:20 | disposition swing bed (61) | DRG 493 ==
LOC: EDBD → EDUNIT# → N.ED 15:09 → N.EDINP 16:35 → N.3E 19:08
PROVIDERS: ADMIT Orthopaedic Surgery; ATTEND Orthopaedic Surgery